=== PATIENT | male | born 1970 | race Caucasian/White ===

== ENCOUNTER 2020-12-10 13:32 | Emergency (ER) | payer MEDICAID ==
[~2020-12-10] VITALS: Ht 185.4 cm; Wt 99.8 kg
[~2020-12-10 13:32] MED LIST: EPINEPHRINE 1MG SYG 10ML ONE; SODIUM BICARB 8.4% 50ML SYRINGE ONE
== END 2020-12-10 15:47 ==
LOC: EDH 13:32
DX: I46.9 Cardiac arrest, cause unspecified (principal); F90.9 Attention-deficit hyperactivity disorder, unspecified type
CPT/HCPCS: 92950; 94799; 99285; J0171; J3490; 94770